=== PATIENT | male | born 1980 | race Two or more races ===

== ENCOUNTER 2017-05-28 07:53 | Emergency (ER) | payer MEDICAID ==
[~2017-05-28 07:53] MED LIST: ASPIRIN 81 MG CHEWABLE TAB PO ONE
--- NOTE | 2017-05-28 08:07 | CPEKG ---
Heart Rate: 78 RR Interval: 769 P-R Interval: 144 QRSD Interval: 94 QT Interval: 372 QTC Interval: 424 P Carver: 25 QRS Carver: 6 T Wave Carver: 22 EKG Severity - NORMAL ECG - EKG Impression: SINUS RHYTHM Electronically Signed By: Duc Morejon 28-May-2017 15:00:40
[2017-05-28] MEDS ORDERED: ASPIRIN 81 MG CHEWABLE TAB ONE (08:08)
--- NOTE | 2017-05-28 08:09 | EDPHY ---
H & P - Medical/Surgical History Hx Asthma: No Hx Chronic Respiratory Disease: No Hx Diabetes: No Hx Cardiac Disease: No Hx Renal Disease: No Hx Cirrhosis: No Hx Alcoholism: No Hx HIV/AIDS: No Hx Splenectomy or Spleen Trauma: No Other PMH: Pt states he has "Kidney issues, heart issues" Uses home O2, asthma , mental health patient Allergies/Adverse Reactions: morphine Allergy (Verified 11/18/13 00:36) Home Medications: Medication Instructions Recorded Albuterol 5 mg/ml INH 11/18/13 Medical Decision Making ED Course/Re-evaluation: CHIEF COMPLAINT: Chest pain HISTORY OF PRESENT ILLNESS: The patient is a 36-year-old male, brought in by EMS, presenting with palpitations. The patient states he has a heart valve issue diagnosed 9 months ago at [facility]. The patient was told to take Aspirin when he developed chest pain. This morning the patient reports a shooting left sided chest pain with ambulation. He feels his heart rate increases with breathing. Patient is only requesting 4 81mg Aspirin. A [employer] enlisted advisor was used for the examination. REVIEW OF SYSTEMS: A 10 point review of systems was performed and is negative with the exception of the elements mentioned in the history of present illness. PHYSICAL EXAM: HR, BP, O2 Sat, RR. Temp noted General Appearance: Alert, well hydrated, appropriate, and non-toxic appearing. Head: Atraumatic without scalp tenderness or obvious injury Eyes: Pupils equal, round, reactive to light and accommodation, EOMI, no trauma , no injection. Ears: Clear bilaterally, no perforation, normal landmarks Nose: Atraumatic, no rhinorrhea, clear. Throat: There is no erythema or exudates, no lesions, normal tonsils, mucus membranes moist. Neck: Supple, 2+ carotid upstroke, nontender, no lymphadenopathy. Respiratory: No retractions, no distress, no wheezes, and no accessory muscle use. Lungs are clear to auscultation bilaterally. Cardiovascular: Regular rate and rhythm, no murmurs, rubs, or gallops. Bilateral carotid, radial, dorsalis pedis, and posterior tibial pulses intact. Good capillary refill all extremities. Gastrointestinal: Abdomen is soft, nontender, non-distended, no masses, no rebound, no guarding, no peritoneal signs. Musculoskeletal: Normal active ROM of all extremities, atraumatic. Neurological: Alert, appropriate, and interactive. The patient has normal DTRs and non-focal cranial nerves, motor, sensory, and cerebellar exam. Skin: No rashes, good turgor, no nodules on palpation. Past medical history: Diabetes, Hypertension, Kidney issues, Mental health issues. Family history: Noncontributory. Social history: Lives in [place]. DIAGNOSTICS/PROCEDURES/CRITICAL CARE TIME: The 12 lead EKG was interpreted by myself. See hard copy and/or "tracemaster" electronic copy for interpretation. Sinus rhythm. No ischemia. DIFFERENTIAL DIAGNOSIS: The differential diagnosis for the patient's chest pain included but was not limited to myocardial ischemia, pulmonary embolus, chest wall pain, pleural inflammation, and pulmonary infectious causes. MEDICAL DECISION MAKING: The patient comes to the ED via [place] The patient speaks Farsi. A enlisted advisor spoke to nursing staff and told the nurse she has spoken to the patient multiple times at various hospital locations. The patient usually is seen for psych issues. The patient has no mental health complaints at this time. He is requesting Aspirin for his chest pain. He declines any further work up at this time. The patient received 81mg Aspirin x4. He would like to go home. Departure - Departure Disposition: Home, Routine, Self-Care Clinical Impression: Chest pain Qualifiers: Chest pain type: unspecified Qualified Code(s): R07.9 - Chest pain, unspecified Condition: Good Instructions: Chest Pain (ED) Additional Instructions: Please followup with your primary care physician when you return to [place]. You have been referred to [facility] before. Call to arrange an appointment as necessary. Referrals: [facility],. [Clinic] - As per Instructions Report Scribed for: Duc Morejon Report Scribed by: Brie Gomes Date of Report: 05/28/17 Time of Report: 08:24
[2017-05-28 08:58] VITALS: BP 107/71; PULSE 81; RESP 16; TEMP 98.6; O2SAT 95
== END 2017-05-28 07:55 | disposition home or self-care (01) ==
LOC: EDUNIT# → EDBD 07:53
DX: R07.9 Chest pain, unspecified (principal); J45.909 Unspecified asthma, uncomplicated; I10 Essential (primary) hypertension; E11.9 Type 2 diabetes mellitus without complications